=== PATIENT | female | born 1985 | race Caucasian/White ===

== ENCOUNTER 2017-05-30 22:17 | Emergency (ER) | payer OTHER ==
[~2017-05-30] VITALS: Ht 157.5 cm; Wt 73.5 kg
--- OUTSIDE RECORDS SUMMARY | 2017-05-30 22:25 | XMS REPORT | Continuity of Care Document ---
Author Author [facility] Address Unknown Phone Unavailable Allergies Active Description Code Type Severity Reaction Onset Reported/Identified Relationship to Patient Clinical Status Yes latex Drug Allergy N/A N/A 07/05/2013 Medications There is no data. 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 Results There is no data. Encounters ACCT No. Visit Date/Time Discharge Status Pt. Type Provider Facility Loc./Unit Complaint [id number] 01/24/2014 13:11:00 01/24/2014 23:59:59 [facility] Outpatient SHERRI PALOMARES APRN [id number] 07/05/2013 16:46:00 07/05/2013 23:59:59 [facility] Out[facility] RAIMUNDO KOENIG DO
[2017-05-30] MEDS ORDERED: RX-HYDROCODONE/APAP 5/325 MG #4 TAB PK PO PRN (23:00)
[2017-05-30] MEDS ORDERED: AUGMENTIN 875 MG TAB (AMOXICILLIN/CLAVULANATE) PO SCH (23:00)
[2017-05-30] MEDS ORDERED: LIDOCAINE/EPI 2% 1:100,00 (XYLOCAINE) 20 ML VIAL INJ ONE (23:00)
[2017-05-30] MEDS ORDERED: AMOX-358 PO (23:05)
--- NOTE | 2017-05-30 23:05 | ED EENT ---
History of Present Illness General Chief Complaint: Dental Problems/Pain Stated Complaint: L SIDE FACIAL SWELLING Source: patient Exam Limitations: no limitations History of Present Illness Date Seen by Provider: May 30, 2017 Time Seen by Provider: 23:01 Initial Comments To ER with left lower jaw swelling since this afternoon. She's had some pain in the left lower jaw for about a week. History of poor dentition and she is saving up to get all of her teeth removed. She was on clindamycin about a month ago for dental abscess which did not seem to improve her symptoms much. Timing/Duration: this afternoon Severity: moderate Allergies and Home Medications Allergies Coded Allergies: No Known Drug Allergies (Unverified , 05/30/17) Home Medications Amoxicillin/Potassium Clav 1 Each Tablet, 1 EACH PO BID, #14 Prescribed by: KVNG BLANKENSHIP on 05/30/17 0376 Review of Systems Constitutional: see HPI, No chills Eyes: No Symptoms Reported Ears: No Symptoms Reported Nose: no symptoms reported Mouth: see HPI Throat: no symptoms reported Respiratory: no symptoms reported Cardiovascular: no symptoms reported Past Vatfizm-Appdzw-Asxeyu Hx Patient Social History Alcohol Use: Denies Use Recreational Drug Use: No Smoking Status: Current Everyday Smoker Type Used: Cigarettes Recent Foreign Travel: No Contact w/Someone Who Travel: No Recent Hopitalizations: No Physical Abuse: No Sexual Abuse: No Mistreated: No Fear: No Surgeries History of Surgeries: Yes Surgeries: Appendectomy, Gallbladder Respiratory History of Respiratory Disorde: No Cardiovascular History of Cardiac Disorders: No Neurological History of Neurological Disord: No Genitourinary History of Genitourinary Disor: No Gastrointestinal History of Gastrointestinal Di: No Musculoskeletal History of Musculoskeletal Dis: No Endocrine History of Endocrine Disorders: No HEENT History of HEENT Disorders: No Cancer History of Cancer: No Psychosocial History of Psychiatric Problem: No Suicide Risk Score: 0 Integumentary History of Skin or Integumenta: No Blood Transfusions History of Blood Disorders: No Physical Exam Vital Signs Vital Sign - Last 12Hours 05/30/17 22:53 Temp 98.4 Pulse 99 Resp 18 B/P (MAP) 140/110 (120) Pulse Ox 96 O2 Delivery Room Air General Appearance: WD/WN, no apparent distress Eyes: bilateral eye normal inspection, bilateral eye PERRL, bilateral eye EOMI Ears: bilateral ear auricle normal, bilateral ear canal normal, bilateral ear TM normal Mouth/Throat: other (there is some swelling to the left side of the mandible. There is swelling to the buccal side of left mandible. There is some fluctuance within this to suggest a drainable abscess. We will proceed with inferior alveolar nerve block and incision and drainage.) Neck: non-tender, full range of motion Cardiovascular: regular rate, rhythm, no murmur Respiratory: no respiratory distress, no accessory muscle use Gastrointestinal: normal bowel sounds, non tender Neurologic/Psychiatric: alert, normal mood/affect, oriented x 3 Skin: normal color, warm/dry I&D : Progress Left side of the mandible was anesthetized with a inferior alveolar nerve block using 1.5 mL of 2% lidocaine with epinephrine. Some additional anesthetic over the most fluctuant portion of this swelling. She was then incised over the most fluctuant portion of swelling with an 11 blade scalpel. I got a rather impressive amount of purulent material out next to tooth #19. Hemostasis was achieved with a gauze 2 x 2 and direct pressure, patient discharged home with return precautions. Progress/Results/Core Measures Results/Orders My Orders Orders - KVNG BLANKENSHIP APRN Lidocaine/Epi 2% 1:100,000 (Xylocaine/Ep (05/30/17 23:00) Rx-Hydrocodone/Apap 5-325 Mg (Rx-Vicodin (05/30/17 23:00) Amoxicillin/Clavulanate Tablet (Augmenti (05/30/17 23:00) Vital Signs/I&O Vital Sign - Last 12Hours 05/30/17 22:53 Temp 98.4 Pulse 99 Resp 18 B/P (MAP) 140/110 (120) Pulse Ox 96 O2 Delivery Room Air Departure Impression Impression: Primary Impression: Dental abscess Disposition: HOME, SELF-CARE Condition: Improved Departure-Patient Inst. Decision time for Depature: 23:04 Referrals: NO,LOCAL PHYSICIAN (PCP/Family) Primary Care Physician Patient Instructions: Tooth Abscess (DC) Add. Discharge Instructions: 1. Return to ER for any worsening swelling, high fevers or other concerns 2. Antibiotics as directed 3. See her dentist as soon as possible next week. All discharge instructions reviewed with patient and/or family. Voiced understanding. Scripts Amoxicillin/Potassium Clav (Augmentin 875-125 Tablet) 1 Each Tablet 1 EACH PO BID, #14 TAB Prov: KVNG BLANKENSHIP APRN 05/30/17 Work/School Note: Work Release Form Date Seen in the Emergency Department: May 30, 2017 Return to Work: Jun 01, 2017 Images Mouth/Nose 1 - Caries, Swelling, Tenderness KVNG BLANKENSHIP APRN May 30, 2017 23:05
[2017-05-30 23:23] VITALS: BP 145/104
== END 2017-05-30 23:23 | disposition home or self-care (01) ==
LOC: ER 22:21
DX: K04.7 Periapical abscess without sinus (principal); F17.210 Nicotine dependence, cigarettes, uncomplicated; Z90.49 Acquired absence of other specified parts of digestive tract
CPT/HCPCS: 99283